=== PATIENT | female | born 1990 | race Caucasian/White ===

== ENCOUNTER 2019-02-07 20:46 | Emergency (ER) | payer OTHER ==
[2019-02-07] MEDS ORDERED: KETOROLAC 30 MG/1 ML SDV ONE (21:21)
[2019-02-07] MEDS ORDERED: NS 1,000 ML IV ONE (21:23)
[2019-02-07] MEDS ORDERED: KETOROLAC 30 MG/1 ML SDV IVP ONE (21:23)
[2019-02-07] MEDS ORDERED: OXYCODONE/APAP 5/325 TAB PO ONE (21:23)
--- NOTE | 2019-02-07 21:27 | EDPHY ---
H & P Time Seen by Provider: 02/07/19 21:05 HPI/ROS: CHIEF COMPLAINT: UTI HISTORY OF PRESENT ILLNESS: The patient is a 28-year-old female who states that she has a "really bad UTI."Patient states that her symptoms started recently. She did a video conference with the physician was started on Bactrim. She has taken 2 doses of Bactrim as well as Pyridium. She feels that her symptoms have worsened throughout the day. She has increased frequency and dysuria. It feels as though she has razor blades when she urinates. She has also noticed hematuria. No fevers or chills. No nausea or vomiting. The patient has mild suprapubic discomfort. REVIEW OF SYSTEMS: 10 systems were reveiwed and are negative with the exception of the elements mentioned in the history of present illness. Past Medical/Surgical History: Includes UTI, von Willebrand's disease Smoking Status: Never smoked Physical Exam: Vitals noted. Afebrile GENERAL: Mild discomfort, alert. HEENT: Eyes normal to inspection, normal pharynx, no signs of dehydration. NECK: Normal, supple. RESPIRATORY: Clear to auscultation bilaterally, no rales, rhonchi or wheezing. CVS: Regular rate and rhythm, no rubs, murmurs, or gallops. ABDOMEN: Soft, nontender, nondistended, no organomegaly. Benign BACK: Normal to inspection, no CVA tenderness. SKIN: Normal color, no rash, warm, dry. No pallor. EXTREMITIES: No pedal edema, no joint swelling. NEURO/PSYCH: Alert and oriented, normal mood and affect, normal motor sensory exam. Constitutional: Initial Vital Signs Temperature (C) 36.5 C 02/07/19 20:55 Heart Rate 95 02/07/19 20:55 Respiratory Rate 16 02/07/19 20:55 Blood Pressure 157/111 H 02/07/19 20:55 O2 Sat (%) 97 02/07/19 20:55 O2 Delivery Mode Room Air Allergies/Adverse Reactions: clindamycin Allergy (Verified 02/07/19 20:53) Home Medications: Medication Instructions Recorded Accutane 02/07/19 Control 02/07/19 Cephalexin [Keflex (*)] 500 mg PO QID 7 Days cap 02/07/19 oxyCODONE/APAP 5/325 [Percocet 1 - 2 tab PO Q4PRN PRN #11 tab 02/07/19 5/325 (*)] Medical Decision Making ED Course/Re-evaluation: In the emergency department I discussed possible etiologies with the patient. I answered all her questions. I discussed options with the patient. An IV was placed. Laboratory studies and UA were obtained. Patient given ceftriaxone 1 g IV. She is given 40 mg IV. Patient was given Percocet 2 tablets orally for pain. [place] [address]. Chemistry panel was normal with normal renal function. Patient's UA was positive. 2200: I rechecked the patient. She was stable. She stated she was feeling much better. Abdomen was benign. She is given warnings since prior to leaving. She will add Keflex to her Bactrim. She will take the entire course of both antibiotics. She was given a prescription for Percocet. Differential Diagnosis: My differential includes but is not limited to urinary tract infection, pyelonephritis, bacteremia, sepsis, STD - Data Points Laboratory Results: Laboratory Results 02/07/19 21:30 02/07/19 21:30 02/07/19 02/07/19 02/07/19 21:30 21:30 21:30 WBC 13.12 10^3/uL H 10^3/uL (3.80-9.50) RBC 4.56 10^6/uL 10^6/uL (4.18-5.33) Hgb 13.2 g/dL g/dL (12.6-16.3) Hct 41.0 % % (38.0-47.0) MCV 89.9 fL fL (81.5-99.8) MCH 28.9 pg pg (27.9-34.1) MCHC 32.2 g/dL L g/dL (32.4-36.7) RDW 12.3 % % (11.5-15.2) Plt Count 330 10^3/uL 10^3/uL (150-400) MPV 10.2 fL fL (8.7-11.7) Neut % (Auto) 72.5 % % (39.3-74.2) Lymph % (Auto) 22.0 % % (15.0-45.0) [place] % (Auto) 4.3 % L % (4.5-13.0) Eos % (Auto) 0.8 % % (0.6-7.6) Baso % (Auto) 0.2 % L % (0.3-1.7) Nucleat RBC Rel Count 0.0 % % (0.0-0.2) Absolute Neuts (auto) 9.52 10^3/uL H 10^3/uL (1.70-6.50) Absolute Lymphs (auto) 2.89 10^3/uL 10^3/uL (1.00-3.00) Absolute Monos (auto) 0.56 10^3/uL 10^3/uL (0.30-0.80) Absolute Eos (auto) 0.10 10^3/uL 10^3/uL (0.03-0.40) Absolute Basos (auto) 0.03 10^3/uL 10^3/uL (0.02-0.10) Absolute Nucleated RBC 0.00 10^3/uL 10^3/uL (0-0.01) Immature Gran % 0.2 % % (0.0-1.1) Immature Gran # 0.02 10^3/uL 10^3/uL (0.00-0.10) Sodium 140 mEq/L mEq/L (135-145) Potassium 3.8 mEq/L mEq/L (3.5-5.2) Chloride 106 mEq/L mEq/L (97-110) Carbon Dioxide 22 mEq/l mEq/l (22-31) Anion Gap 12 mEq/L mEq/L (6-14) BUN 12 mg/dL mg/dL (7-23) Creatinine 0.8 mg/dL mg/dL (0.6-1.0) Estimated GFR > 60 Glucose 105 mg/dL H mg/dL (70-100) Calcium 9.7 mg/dL mg/dL (8.5-10.4) Beta HCG, Qual NEGATIVE Urine Color Urine Appearance Urine pH Ur Specific [place] Urine Protein Urine Ketones Urine Blood Urine Nitrate Urine Bilirubin Urine Urobilinogen Ur Leukocyte Esterase Urine RBC Urine WBC Ur Epithelial Cells Urine Bacteria Urine Mucus Urine Glucose 02/07/19 21:00 WBC RBC Hgb Hct MCV MCH MCHC RDW Plt Count MPV Neut % (Auto) Lymph % (Auto) [place] % (Auto) Eos % (Auto) Baso % (Auto) Nucleat RBC Rel Count Absolute Neuts (auto) Absolute Lymphs (auto) Absolute Monos (auto) Absolute Eos (auto) Absolute Basos (auto) Absolute Nucleated RBC Immature Gran % Immature Gran # Sodium Potassium Chloride Carbon Dioxide Anion Gap BUN Creatinine Estimated GFR Glucose Calcium Beta HCG, Qual Urine Color JEANA Urine Appearance CLEAR Urine pH 6.0 (5.0-7.5) Ur Specific [place] 1.002 (1.002-1.030) Urine Protein 2+ H (NEGATIVE) Urine Ketones NEGATIVE (NEGATIVE) Urine Blood 3+ H (NEGATIVE) Urine Nitrate POSITIVE H (NEGATIVE) Urine Bilirubin NEGATIVE (NEGATIVE) Urine Urobilinogen 2.0 EU H EU (0.2-1.0) Ur Leukocyte Esterase 1+ H (NEGATIVE) Urine RBC 5-10 /hpf H /hpf (0-3) Urine WBC 50-182 /hpf H /hpf (0-3) Ur Epithelial Cells TRACE /lpf /lpf (NONE-1+) Urine Bacteria 1+ /hpf H /hpf (NONE SEEN) Urine Mucus TRACE /lpf /lpf (NONE-1+) Urine Glucose NEGATIVE (NEGATIVE) Medications Given: Discontinued Medications Sodium Chloride (Ns) 1,000 mls @ 0 mls/hr IV EDNOW ONE; Wide Open PRN Reason: Protocol Stop: 02/07/19 21:24 Last Admin: 02/07/19 21:32 Dose: 1,000 mls Ceftriaxone Sodium/Dextrose (Rocephin 1 Gm (Premix)) 50 mls @ 100 mls/hr IV EDNOW ONE PRN Reason: Protocol Stop: 02/07/19 22:13 Last Admin: 02/07/19 21:55 Dose: 50 mls Ketorolac Tromethamine (Toradol) 30 mg IVP EDNOW ONE Stop: 02/07/19 21:24 Last Admin: 02/07/19 21:32 Dose: 30 mg Oxycodone/Acetaminophen (Percocet 5/325) 2 tab PO EDNOW ONE Stop: 02/07/19 21:24 Last Admin: 02/07/19 21:38 Dose: 2 tab Departure - Departure Disposition: Home, Routine, Self-Care Clinical Impression: Dysuria UTI (urinary tract infection) Qualifiers: Urinary tract infection type: acute cystitis Hematuria presence: with hematuria Qualified Code(s): N30.01 - Acute cystitis with hematuria Condition: Good Instructions: Urinary Tract Infection in Women (ED) Additional Instructions: Return with increasing pain, vomiting, inability to tolerate antibiotics or any other concerns. Continue to take her entire course of Bactrim. I have added Keflex antibiotics as well. Take ibuprofen every 6 hr as needed. Referrals: Alva Gómez MD [Medical Doctor] - 3-4 days, if not improved Prescriptions: Cephalexin [Keflex (*)] 500 mg PO QID 7 Days cap oxyCODONE/APAP 5/325 [Percocet 5/325 (*)] 1 - 2 tab PO Q4PRN PRN #11 tab PRN Reason: For Moderate To Severe Pain
[2019-02-07 21:43] LABS: PLATELET COUNT 330 10^3/uL (150-400)
[2019-02-07] MEDS ORDERED: OXYCODONE/APAP 5/325MG PREPACK#4 BTL TAKEHOME ONE (22:26)
[2019-02-07 22:39] VITALS: BP 125/84
== END 2019-02-07 22:43 | disposition home or self-care (01) ==
DX: N30.01 Acute cystitis with hematuria (principal)
CPT/HCPCS: 96365; J0696; J1885